=== PATIENT | male | born 2000 | race Two or more races ===

== ENCOUNTER 2020-12-27 14:29 | Emergency (ER) | payer OTHER ==
[~2020-12-27] VITALS: Ht 167.6 cm; Wt 90.7 kg
--- NOTE | 2020-12-27 15:00 | NUR ---
Patient bibra from street, walking, noted wound on the RLE. On room air, breathing evenly and unlabored. COnnected to the monitor and pulse ox. Kept comfortable, will continue to monitor accordingly.
[2020-12-27] MEDS ORDERED: LORAZEPAM INJ 2 MG/ML VIAL ONE (18:35)
[2020-12-27] MEDS ORDERED: OLANZAPINE 10 MG VIAL IM ONE ×2 (19:00→19:08)
[2020-12-27] MEDS ORDERED: LORAZEPAM INJ 2 MG/ML VIAL IM ONE (19:00)
[2020-12-27] MEDS ORDERED: diphenhydrAMINE HCL 50 MG/ML VIAL IM ONE (19:00)
[2020-12-27] MEDS ORDERED: diphenhydrAMINE HCL 50 MG/ML VIAL ONE (19:07)
[2020-12-27 19:32] LABS: BASOPHILS % (AUTO) 0.3 % (0.0-2.0); EOSINOPHILS % (AUTO) 0.2 % (0.0-6.0); HEMATOCRIT 40 % (39-51); HEMOGLOBIN 13.2 g/dL (13.5-17.5); LYMPHOCYTES # (AUTO) 1.4 K/uL (0.8-4.8); LYMPHOCYTES % (AUTO) 13.5 % (20.0-44.0); MEAN CORPUSCULAR HGB CONC 33 g/dl (31.0-36.0); MEAN CORPUSCULAR VOLUME 75 fL (80-96); MONOCYTES # (AUTO) 0.7 K/uL (0.1-1.30); MONOCYTES % (AUTO) 7.2 % (2.0-12.0); NEUTROPHILS % (AUTO) 78.8 % (43.0-81.0); PLATELET COUNT (AUTO) 305 K/uL (150-450); RED BLOOD CELL COUNT(AUTO) 5.36 MIL/uL (4.5-6.0); WHITE BLOOD COUNT (AUTO) 10.2 K/uL (4.3-11.0)
--- NOTE | 2020-12-27 19:32 | NUR ---
PT CONSTANTLY SCREAMING, RESTLESS, UNCOOPERATIVE. PT MEDICATED BY PREVIOUS SHIFT. CALL LIGHT WITHIN REACH. 1:1 SITTER AT [facility] FOR TP SAFETY. WILLCONTINUE TO MONITOR PT CLOSELY.
[2020-12-27 19:42] LABS: CALCIUM, SERUM 9.1 mg/dL (8.5-10.1); CARBON DIOXIDE 22 mmol/L (21-32); CHLORIDE 106 mmol/L (98-107); GLUCOSE 136 mg/dL (74-106); POTASSIUM 3.7 mmol/L (3.5-5.1); SODIUM SERUM 141 mmol/L (136-145); UREA NITROGEN, BLOOD 19 mg/dL (7-18)
[2020-12-27 19:48] LABS: ALANINE AMINOTRANSFERASE 18 U/L (12-78); ALBUMIN 3.8 g/dL (3.4-5.0); ALKALINE PHOSPHATASE 107 U/L (46-116); ASPARTATE AMINOTRANSFERASE 15 U/L (15-37); BILIRUBIN,DIRECT 0.1 mg/dL (0.0-0.2); BILIRUBIN,TOTAL 0.2 mg/dL (0.2-1.0); TOTAL PROTEIN, SERUM 7.7 g/dL (6.4-8.2)
[2020-12-27 19:49] LABS: ACETAMINOPHEN 0 ug/ml (10-30); ALCOHOL, BLOOD < 3 mg/dL (0-0)
[2020-12-27] MEDS ORDERED: LIDOCAINE 2% JEL UROJET 10 ML MM ONE (20:08)
--- NOTE | 2020-12-27 20:19 | NUR ---
URINE COLLECTED AND SENT TO LAB.
--- NOTE | 2020-12-27 20:35 | NUR ---
PT VERY AGITATED, SCREAMING, RESTLESS, UNCOOPERATIVE. ER MD MADE AWARE WITH ORDERS RECEIVED. WILL CARRY OUT ORDERS.
[2020-12-27 20:39] LABS: BILIRUBIN,URINE Negative (NEGATIVE); COLOR,URINE YELLOW (YELLOW); LEUKOCYTE ESTERASE ,URINE Negative (NEGATIVE); NITRITE, URINE Negative (NEGATIVE); PH,URINE 7.5 (5.0-8.0); PROTEIN,URINE Trace mg/dl (NEGATIVE); UGLUCOSE Negative (NEGATIVE); UROBILINOGEN,URINE 0.2 EU/dL (0.2)
[2020-12-27] MEDS ORDERED: HALOPERIDOL LACTATE INJ 5 MG/ML VIAL ONE (20:48)
--- NOTE | 2020-12-27 20:50 | NUR ---
PT MEDICATED ORDERED BY ER . 1:1 SITTER REMAINS AT [facility]. PT ON CARDIAC MONITORING, CONTINUOUS POX. CALL LIGHT WITHIN REACH. WILL CONTINUE TO MONITOR PT CLOSELY.
[2020-12-27] MEDS ORDERED: HALOPERIDOL LACTATE INJ 5 MG/ML VIAL IM ONE (21:00)
[2020-12-27 21:21] LABS: BACTERIA,URINE None seen /HPF (None Seen); SQUAMOUS EPITHELIAL CELL,UR 0-2 /HPF (None Seen); URINE AMORPHOUS PHOSPHATES Moderate /HPF (None Seen); WBC,URINE 0-2 /HPF (0-3)
--- NOTE | 2020-12-28 00:03 | NUR ---
PT ASLEEP, NO ACUTE DISTRESS NOTED, RESP EVEN AND UNLABORED. CALL LIGHT WITHIN REACH. 1:1 SITTER AT [facility]. WILL CONTINUE TO MONITOR PT CLOSELY.
--- NOTE | 2020-12-28 03:04 | NUR ---
PT AWAKE, SCREAMING, RESTLESS, UNCOOPERATIVE. ER MD RUSS AWARE.
[2020-12-28] MEDS ORDERED: LORAZEPAM INJ 2 MG/ML VIAL IM ONE (03:30)
[2020-12-28] MEDS ORDERED: LORAZEPAM INJ 2 MG/ML VIAL ONE (03:43)
--- NOTE | 2020-12-28 08:45 | NUR ---
ASSUME PT CARE, BED BATH PROVIDED. WOUND TO RLE RE DRESSED. PT PROVIDED W/ BREAKFAAST TRAY. VITALS REMAINS STABLE. KESHA CM AT BEDSIDE.
--- NOTE | 2020-12-28 09:01 | NUR ---
INFORMED AGRICULTURAL RESEARCH ENGINEER FOR CONSULT. PATIENT AWAKE AND ALERT, UNABLE TO SAY HIS NAME COMPLETELY. WOUND ON RLE CLEANED AND DRESSED WITH NEW DRY DRESSING. NEEDS ATTENDED. KEPT PATIENT COMFORTABLE.
--- NOTE | 2020-12-28 09:04 | NUR ---
FIELD STAFF MANAGER CALLED BACK WITH NUMBER, , FOR [employer], IT IS [phone]. FIELD STAFF MANAGER WILL COME AT 0940.
--- NOTE | 2020-12-28 09:14 | NUR ---
CALLED [employer] LINE AND LVM
--- NOTE | 2020-12-28 09:18 | NUR ---
CALLED KRISTEN TIP NUMBER [id number] FROM [employer] REPORT AND LVM
--- NOTE | 2020-12-28 09:23 | NUR ---
FOUND PATIENT ON THE [employer] IN [employer]. CALLED MOM RADHA WEI [phone]
--- NOTE | 2020-12-28 10:30 | NUR ---
DEVANTE CANSECO CAME AND PICKED UP THE PATIENT. ADVISED TO GET MEDICAL ID [id number]. PATIENT ALERT TO HIMSELF, AMBULATORY WITH STEADY GAIT. NO DISTRESS NOTED. Patient discharged to home in stable condition. Written and verbal after care instructions given. Patient verbalizes understanding of instruction.
[2020-12-28 10:32] VITALS: BP 132/70
== END 2020-12-28 10:32 | disposition home or self-care (01) ==
LOC: EDBD 14:35 → ER 14:35
DX: S80.211A Abrasion, right knee, initial encounter (principal); F84.0 Autistic disorder; R62.50 Unspecified lack of expected normal physiological development in childhood; X58.XXXA Exposure to other specified factors, initial encounter; Y93.89 Activity, other specified; Y92.89 Other specified places as the place of occurrence of the external cause; Y99.8 Other external cause status
CPT/HCPCS: 36415; 73564; 73590; 80048; 80076; 80143; 80307; 80320; 81001; 85025; 96372 ×3; 99285; A6403; J1200; J1630; J2060 ×2; J3490 ×2; G0480